=== PATIENT | female | born 2000 | race African-American/Black ===

== ENCOUNTER 2022-07-21 05:32 | Emergency (ER) | payer BC, OTHER ==
--- OUTSIDE RECORDS SUMMARY | 2022-07-21 05:38 | XMS REPORT | Continuity of Care Document ---
:2000 Author Organization [facility] t Address [address] [place] [address] Care Team Providers Name Role Phone Pcp, Patient Does Not Have A Primary Care Physician [phone] Ganesh Pinto Attending Clinician Unavailable SACHIN_CHENG_Blair_Nayely Attending Clinician Unavailable Ganesh Pinto Attending Clinician [phone] Dat Attending Clinician Unavailable [place] Attending Clinician Jennifer Sparks MD Attending Clinician JENNIFER SPARKS Attending Clinician Unavailable YESSENIA KURTZ Attending Clinician Unavailable Yessenia Kurtz MD Attending Clinician Sarah Alvarez Attending Clinician Lux Marquez Attending Clinician Unknown, Attending Attending Clinician Unavailable LUX GUDINO Attending Clinician Unavailable Doctor Unassigned, [place] Attending Clinician Unavailable Ganesh Pinto Admitting Clinician Unavailable Soo Admitting Clinician Unavailable Dat Admitting Clinician Unavailable Payers Payer Name Policy Type Policy Number Effective Date Expiration Date S delta [facility] [id number] 2022 [place] - 00:00:00 [facility] (MEDICAID REPLACEMENT - [place] [id number] 2016 2022 00:00:00 00:00:00 Problems Condition Condition Condition Status Onset Resolution Last Treating Co mments Source Name Details Category Date Date Treatment Clinician Date Anemia Anemia Problem Active [facility] 6-18 Medical 00:00: 00 Right hip Right hip Disease Active [facility] pain pain 9-15 it[facility] of 00:00: [place] 00 Medical Branch Scoliosis Scoliosis Disease Active 2014-07 [facility] 2-08 ity of 00:00: [place] 00 [facility] Branch Allergies, Adverse Reactions, Alerts Allergy Allergy Status Severity Reaction(s) Onset Inactive Treating Comm ents Source Name Type Date Date Clinician No Known DA Active [facility] 2021-07 [facility] 00 [facility] No Known DA Active [facility] 1[facility]25 [facility] 00 [facility] No Known DA Active U [facility] 1-[facility] 00 [facility] No Known DA Active U [facility] 7-04 [facility] 00 [facility] NO KNOWN Drug Active [facility] ALLERGIE Class ity of S [facility] Social History Social Habit Start Date Stop Date Quantity Comments Source Exposure to 2021-11-06 2021-11-16 Not sure [facility] SARS-CoV-2 (event) 00:00:00 09:45:00 Medica l Branch Alcohol intake 2021-11-16 2021-11-16 0 /d [facility] 00:00:00 00:00:00 Medical Branch Sex Assigned At 2000 2000 [facility] 00:00:00 00:00:00 Medical Branch Smoking Status Start Date Stop Date Source Never smoker [facility] Medical Branch Medications Ordered Filled Start Stop Current Ordering Indication Dosage Frequency Signature Comments Components Source Medication Medication Date Date Medication? Clinician (SIG) Name Name methocarbam 2021- No [id number] 750mg Take 1 [facility] oL 4-20 05-01 tablet by ity of (ROBAXIN-75 [place] 04:59 [place] 750 mg 00 :00 (four) Medical tablet times Branch daily for 10 days. ibuprofen 2021- No [id number] 800mg Take 1 [facility] 800 mg 4-20 05-01 tablet by ity of tablet 00:00: 04:59 mouth [place] 00 :00 every 8 Medical (eight) Branch hours for 10 days. methocarbam 2021- No [id number] 750mg Take 1 [facility] oL 4-20 05-01 tablet by ity of (ROBAXIN-75 00:00: 04:59 mouth [place] 750 mg 00 :00 (four) Medical tablet times Branch daily for 10 days. ibuprofen 2021- No [id number] 800mg Take 1 [facility] 800 mg 4-20 05-01 tablet by ity of tablet 00:00: 04:59 mouth [place] 00 :00 every 8 Medical (eight) Branch hours for 10 days. naproxen 2018- Yes [id number] 375mg Take 1 U nivers 375 mg 1-18 tablet by ity of tablet 00:00: mouth 2 [place] 00 (two) Medical times Branch daily with meals. naproxen 2018-0 Yes [id number] 375mg Take 1 U nivers 375 mg 1-18 tablet by ity of tablet 00:00: mouth 2 [place] 00 (two) Medical times Branch daily with meals. naproxen 2017-0 Yes Take by Univer s sodium 7-14 mouth. ity of (ALEVE) 220 10:44: [place] mg capsule 44 Medical Branch naproxen 2017-0 Yes Take by Univer s sodium 7-14 mouth. ity of (ALEVE) 220 10:44: [place] mg capsule 44 Medical Branch amoxicillin 2018-0 Yes 500mg Take 1 Uni vers 500 mg 7-14 capsule by ity of capsule 00:00: mouth 3 [place] 00 (three) Medical times Branch daily. naproxen 2018-0 Yes 550mg Take 1 Univer s sodium 550 7-14 tablet by ity of mg tablet 00:00: mouth 2 [place] 00 (two) Medical times Branch daily with meals. amoxicillin 2017-0 Yes 500mg Take 1 Uni vers 500 mg 7-14 capsule by ity of capsule 00:00: mouth 3 [place] (three) Medical times Branch daily. naproxen 2018-0 Yes 550mg Take 1 Univer s sodium 550 7-14 tablet by ity of mg tablet 00:00: mouth 2 (two) Medical times Branch daily with meals. traMADOL 2016-0 Yes 50mg Take 1 Tab Uni vers (ULTRAM) 50 1-16 by mouth ity of mg tablet 00:00: every 6 [place] [id number] (six) Medical hours as Branch needed for Pain (scale 4-6). Danielito Soto PA-C / Rigo Pedroza MD BRIANNE# [id number] DPS# [id number] x Lic.# [id number] NPI# [id number] traMADOL 2015-0 Yes 50mg Take 1 Tab Uni vers (ULTRAM) 50 1-16 by mouth ity of mg tablet 00:00: every 6 [place] [address] (six) Medical hours as Branch needed for Pain (scale 4-6). Danielito Soto PA-C / Rigo Pedroza MD BRIANNE# [id number] DPS# [id number] x Lic.# [id number] NPI# [id number] azithromyci azithromyci No azithromyc [facility] n 250 mg n 250 mg in 250 mg Me dical tablet tablet tablet Elinest 0.3 Elinest 0.3 No Elinest [facility] mg-30 mcg mg-30 mcg 0.3 mg-30 Medical tablet TAKE tablet TAKE mcg tablet 1 TABLET BY 1 TABLET BY TAKE 1 MOUTH EVERY MOUTH EVERY TABLET BY DAY DAY MOUTH EVERY DAY famotidine famotidine No famotidine [facility] 40 mg 40 mg 40 mg Medical tablet tablet tablet iron iron No iron [facility] methocarbam methocarbam No methocarba [facility] ol 750 mg ol 750 mg mol 750 mg Medical tablet TAKE tablet TAKE tablet 1 TABLET BY 1 TABLET BY TAKE 1 MOUTH FOUR MOUTH FOUR TABLET BY TIMES DAILY TIMES DAILY MOUTH FOUR FOR 10 DAYS FOR 10 DAYS TIMES DAILY FOR 10 DAYS ondansetron ondansetron No ondansetro [facility] HCl 4 mg HCl 4 mg n HCl 4 mg M edical tablet Take tablet Take tablet 2 tablets 2 tablets Take 2 twice a day twice a day tablets by oral by oral twice a route for route for day by 15 days. 15 days. oral route for 15 days. pantoprazol pantoprazol No pantoprazo [facility] e 40 mg e 40 mg le 40 mg Medic al tablet,suzan tablet,suzan tablet,del yed release yed release ayed TAKE 1 TAKE 1 release TABLET BY TABLET BY TAKE 1 MOUTH EVERY MOUTH EVERY TABLET BY NIGHT AT NIGHT AT MOUTH BEDTIME BEDTIME EVERY NIGHT AT BEDTIME + + No + [facility] Medical terbinafine terbinafine No terbinafin [facility] HCl 250 mg HCl 250 mg e HCl 250 Medical tablet Take tablet Take mg tablet 1 tablet 1 tablet Take 1 every day every day tablet by oral by oral every day route. route. by oral route. azithromyci azithromyci No azithromyc [facility] n 250 mg n 250 mg in 250 mg Me dical tablet tablet tablet Elinest 0.3 Elinest 0.3 No Elinest [facility] mg-30 mcg mg-30 mcg 0.3 mg-30 Medical tablet TAKE tablet TAKE mcg tablet 1 TABLET BY 1 TABLET BY TAKE 1 MOUTH EVERY MOUTH EVERY TABLET BY DAY DAY MOUTH EVERY DAY famotidine famotidine No famotidine [facility] 40 mg 40 mg 40 mg Medical tablet tablet tablet hydrocodone hydrocodone No hydrocodon [facility] 5 5 e 5 Medical mg-acetamin mg-acetamin mg-acetami ophen 325 ophen 325 nophen 325 mg tablet mg tablet mg tablet TAKE 1 TAKE 1 TAKE 1 TABLET BY TABLET BY TABLET BY MOUTH EVERY MOUTH EVERY MOUTH 6 HOURS 6 HOURS EVERY 6 NEEDED NEEDED HOURS NEEDED ibuprofen ibuprofen No ibuprofen [facility] 600 mg 600 mg 600 mg Medical tablet TAKE tablet TAKE tablet 1 TABLET BY 1 TABLET BY TAKE 1 MOUTH EVERY MOUTH EVERY TABLET BY 6 HOURS 6 HOURS MOUTH NEEDED NEEDED EVERY 6 HOURS NEEDED iron iron No iron [facility] methocarbam methocarbam No methocarba [facility] ol 750 mg ol 750 mg mol 750 mg Medical tablet TAKE tablet TAKE tablet 1 TABLET BY 1 TABLET BY TAKE 1 MOUTH FOUR MOUTH FOUR TABLET BY TIMES DAILY TIMES DAILY MOUTH FOUR FOR 10 DAYS FOR 10 DAYS TIMES DAILY FOR 10 DAYS ondansetron ondansetron No ondansetro [facility] HCl 4 mg HCl 4 mg n HCl 4 mg M edical tablet Take tablet Take tablet 2 tablets 2 tablets Take 2 twice a day twice a day tablets by oral by oral twice a route for route for day by 15 days. 15 days. oral route for 15 days. pantoprazol pantoprazol No pantoprazo [facility] e 40 mg e 40 mg le 40 mg Medic al tablet,suzan tablet,suzan tablet,del yed release yed release ayed TAKE 1 TAKE 1 release TABLET BY TABLET BY TAKE 1 MOUTH EVERY MOUTH EVERY TABLET BY NIGHT AT NIGHT AT MOUTH BEDTIME BEDTIME EVERY NIGHT AT BEDTIME + + No + [facility] terbinafine terbinafine No terbinafin [facility] HCl 250 mg HCl 250 mg e HCl 250 Medical tablet Take tablet Take mg tablet 1 tablet 1 tablet Take 1 every day every day tablet by oral by oral every day route. route. by oral route. azithromyci azithromyci No azithromyc [facility] n 250 mg n 250 mg in 250 mg Me dical tablet tablet tablet Elinest 0.3 Elinest 0.3 No Elinest [facility] mg-30 mcg mg-30 mcg 0.3 mg-30 Medical tablet TAKE tablet TAKE mcg tablet 1 TABLET BY 1 TABLET BY TAKE 1 MOUTH EVERY MOUTH EVERY TABLET BY DAY DAY MOUTH EVERY DAY famotidine famotidine No famotidine [facility] 40 mg 40 mg 40 mg Medical tablet tablet tablet iron iron No iron [facility] methocarbam methocarbam No methocarba [facility] ol 750 mg ol 750 mg mol 750 mg Medical tablet TAKE tablet TAKE tablet 1 TABLET BY 1 TABLET BY TAKE 1 MOUTH FOUR MOUTH FOUR TABLET BY TIMES DAILY TIMES DAILY MOUTH FOUR FOR 10 DAYS FOR 10 DAYS TIMES DAILY FOR 10 DAYS ondansetron ondansetron No ondansetro [facility] HCl 4 mg HCl 4 mg n HCl 4 mg M edical tablet Take tablet Take tablet 2 tablets 2 tablets Take 2 twice a day twice a day tablets by oral by oral twice a route for route for day by 15 days. 15 days. oral route for 15 days. pantoprazol pantoprazol No pantoprazo [facility] e 40 mg e 40 mg le 40 mg Medic al tablet,suzan tablet,suzan tablet,del yed release yed release ayed TAKE 1 TAKE 1 release TABLET BY TABLET BY TAKE 1 MOUTH EVERY MOUTH EVERY TABLET BY NIGHT AT NIGHT AT MOUTH BEDTIME BEDTIME EVERY NIGHT AT BEDTIME + + No + [facility] terbinafine terbinafine No terbinafin [facility] HCl 250 mg HCl 250 mg e HCl 250 Medical tablet Take tablet Take mg tablet 1 tablet 1 tablet Take 1 every day every day tablet by oral by oral every day route. route. by oral route. azithromyci azithromyci No azithromyc [facility] n 250 mg n 250 mg in 250 mg Me dical tablet tablet tablet Elinest 0.3 Elinest 0.3 No Elinest [facility] mg-30 mcg mg-30 mcg 0.3 mg-30 Medical tablet TAKE tablet TAKE mcg tablet 1 TABLET BY 1 TABLET BY TAKE 1 MOUTH EVERY MOUTH EVERY TABLET BY DAY DAY MOUTH EVERY DAY famotidine famotidine No famotidine [facility] 40 mg 40 mg 40 mg Medical tablet tablet tablet iron iron No iron [facility] methocarbam methocarbam No methocarba [facility] ol 750 mg ol 750 mg mol 750 mg Medical tablet TAKE tablet TAKE tablet 1 TABLET BY 1 TABLET BY TAKE 1 MOUTH FOUR MOUTH FOUR TABLET BY TIMES DAILY TIMES DAILY MOUTH FOUR FOR 10 DAYS FOR 10 DAYS TIMES DAILY FOR 10 DAYS ondansetron ondansetron No ondansetro [facility] HCl 4 mg HCl 4 mg n HCl 4 mg M edical tablet Take tablet Take tablet 2 tablets 2 tablets Take 2 twice a day twice a day tablets by oral by oral twice a route for route for day by 15 days. 15 days. oral route for 15 days. pantoprazol pantoprazol No pantoprazo [facility] e 40 mg e 40 mg le 40 mg Medic al tablet,suzan tablet,suzan tablet,del yed release yed release ayed TAKE 1 TAKE 1 release TABLET BY TABLET BY TAKE 1 MOUTH EVERY MOUTH EVERY TABLET BY NIGHT AT NIGHT AT MOUTH BEDTIME BEDTIME EVERY NIGHT AT BEDTIME + + No + [facility] terbinafine terbinafine No terbinafin [facility] HCl 250 mg HCl 250 mg e HCl 250 Medical tablet Take tablet Take mg tablet 1 tablet 1 tablet Take 1 every day every day tablet by oral by oral every day route. route. by oral route. azithromyci azithromyci No azithromyc [facility] n 250 mg n 250 mg in 250 mg Me dical tablet tablet tablet Elinest 0.3 Elinest 0.3 No Elinest [facility] mg-30 mcg mg-30 mcg 0.3 mg-30 Medical tablet TAKE tablet TAKE mcg tablet 1 TABLET BY 1 TABLET BY TAKE 1 MOUTH EVERY MOUTH EVERY TABLET BY DAY DAY MOUTH EVERY DAY famotidine famotidine No famotidine [facility] 40 mg 40 mg 40 mg Medical tablet tablet tablet iron iron No iron [facility] Medical methocarbam methocarbam No methocarba [facility] ol 750 mg ol 750 mg mol 750 mg Medical tablet TAKE tablet TAKE tablet 1 TABLET BY 1 TABLET BY TAKE 1 MOUTH FOUR MOUTH FOUR TABLET BY TIMES DAILY TIMES DAILY MOUTH FOUR FOR 10 DAYS FOR 10 DAYS TIMES DAILY FOR 10 DAYS ondansetron ondansetron No ondansetro [facility] HCl 4 mg HCl 4 mg n HCl 4 mg M edical tablet Take tablet Take tablet 2 tablets 2 tablets Take 2 twice a day twice a day tablets by oral by oral twice a route for route for day by 15 days. 15 days. oral route for 15 days. pantoprazol pantoprazol No pantoprazo [facility] e 40 mg e 40 mg le 40 mg Medic al tablet,suzan tablet,suzan tablet,del yed release yed release ayed TAKE 1 TAKE 1 release TABLET BY TABLET BY TAKE 1 MOUTH EVERY MOUTH EVERY TABLET BY NIGHT AT NIGHT AT MOUTH BEDTIME BEDTIME EVERY NIGHT AT BEDTIME + + No + [facility] terbinafine terbinafine No terbinafin [facility] HCl 250 mg HCl 250 mg e HCl 250 Medical tablet Take tablet Take mg tablet 1 tablet 1 tablet Take 1 every day every day tablet by oral by oral every day route. route. by oral route. azithromyci azithromyci No azithromyc [facility] n 250 mg n 250 mg in 250 mg Me dical tablet tablet tablet Elinest 0.3 Elinest 0.3 No Elinest [facility] mg-30 mcg mg-30 mcg 0.3 mg-30 Medical tablet TAKE tablet TAKE mcg tablet 1 TABLET BY 1 TABLET BY TAKE 1 MOUTH EVERY MOUTH EVERY TABLET BY DAY DAY MOUTH EVERY DAY famotidine famotidine No famotidine [facility] 40 mg 40 mg 40 mg Medical tablet tablet tablet iron iron No iron [facility] Medical methocarbam methocarbam No methocarba [facility] ol 750 mg ol 750 mg mol 750 mg Medical tablet TAKE tablet TAKE tablet 1 TABLET BY 1 TABLET BY TAKE 1 MOUTH FOUR MOUTH FOUR TABLET BY TIMES DAILY TIMES DAILY MOUTH FOUR FOR 10 DAYS FOR 10 DAYS TIMES DAILY FOR 10 DAYS ondansetron ondansetron No ondansetro [facility] HCl 4 mg HCl 4 mg n HCl 4 mg M edical tablet Take tablet Take tablet 2 tablets 2 tablets Take 2 twice a day twice a day tablets by oral by oral twice a route for route for day by 15 days. 15 days. oral route for 15 days. pantoprazol pantoprazol No pantoprazo [facility] e 40 mg e 40 mg le 40 mg Medic al tablet,suzan tablet,suzan tablet,del yed release yed release ayed TAKE 1 TAKE 1 release TABLET BY TABLET BY TAKE 1 MOUTH EVERY MOUTH EVERY TABLET BY NIGHT AT NIGHT AT MOUTH BEDTIME BEDTIME EVERY NIGHT AT BEDTIME + + No + [facility] Medical terbinafine terbinafine No terbinafin [facility] HCl 250 mg HCl 250 mg e HCl 250 Medical tablet Take tablet Take mg tablet 1 tablet 1 tablet Take 1 every day every day tablet by oral by oral every day route. route. by oral route. azithromyci azithromyci No azithromyc [facility] n 250 mg n 250 mg in 250 mg Me dical tablet tablet tablet Elinest 0.3 Elinest 0.3 No Elinest [facility] mg-30 mcg mg-30 mcg 0.3 mg-30 Medical tablet TAKE tablet TAKE mcg tablet 1 TABLET BY 1 TABLET BY TAKE 1 MOUTH EVERY MOUTH EVERY TABLET BY DAY DAY MOUTH EVERY DAY famotidine famotidine No famotidine [facility] 40 mg 40 mg 40 mg Medical tablet tablet tablet hydrocodone hydrocodone No hydrocodon [facility] 5 5 e 5 Medical mg-acetamin mg-acetamin mg-acetami ophen 325 ophen 325 nophen 325 mg tablet mg tablet mg tablet TAKE 1 TAKE 1 TAKE 1 TABLET BY TABLET BY TABLET BY MOUTH EVERY MOUTH EVERY MOUTH 6 HOURS 6 HOURS EVERY 6 NEEDED NEEDED HOURS NEEDED ibuprofen ibuprofen No ibuprofen [facility] 600 mg 600 mg 600 mg Medical tablet TAKE tablet TAKE tablet 1 TABLET BY 1 TABLET BY TAKE 1 MOUTH EVERY MOUTH EVERY TABLET BY 6 HOURS 6 HOURS MOUTH NEEDED NEEDED EVERY 6 HOURS NEEDED iron iron No iron [facility] Medical methocarbam methocarbam No methocarba [facility] ol 750 mg ol 750 mg mol 750 mg Medical tablet TAKE tablet TAKE tablet 1 TABLET BY 1 TABLET BY TAKE 1 MOUTH FOUR MOUTH FOUR TABLET BY TIMES DAILY TIMES DAILY MOUTH FOUR FOR 10 DAYS FOR 10 DAYS TIMES DAILY FOR 10 DAYS ondansetron ondansetron No ondansetro [facility] HCl 4 mg HCl 4 mg n HCl 4 mg M edical tablet Take tablet Take tablet 2 tablets 2 tablets Take 2 twice a day twice a day tablets by oral by oral twice a route for route for day by 15 days. 15 days. oral route for 15 days. pantoprazol pantoprazol No pantoprazo [facility] e 40 mg e 40 mg le 40 mg Medic al tablet,suzan tablet,suzan tablet,del yed release yed release ayed TAKE 1 TAKE 1 release TABLET BY TABLET BY TAKE 1 MOUTH EVERY MOUTH EVERY TABLET BY NIGHT AT NIGHT AT MOUTH BEDTIME BEDTIME EVERY NIGHT AT BEDTIME + + No + [facility] terbinafine terbinafine No terbinafin [facility] HCl 250 mg HCl 250 mg e HCl 250 Medical tablet Take tablet Take mg tablet 1 tablet 1 tablet Take 1 every day every day tablet by oral by oral every day route. route. by oral route. azithromyci azithromyci No azithromyc [facility] n 250 mg n 250 mg in 250 mg Me dical tablet tablet tablet Elinest 0.3 Elinest 0.3 No Elinest [facility] mg-30 mcg mg-30 mcg 0.3 mg-30 Medical tablet TAKE tablet TAKE mcg tablet 1 TABLET BY 1 TABLET BY TAKE 1 MOUTH EVERY MOUTH EVERY TABLET BY DAY DAY MOUTH EVERY DAY famotidine famotidine No famotidine [facility] 40 mg 40 mg 40 mg Medical tablet tablet tablet iron iron No iron [facility] methocarbam methocarbam No methocarba [facility] ol 750 mg ol 750 mg mol 750 mg Medical tablet TAKE tablet TAKE tablet 1 TABLET BY 1 TABLET BY TAKE 1 MOUTH FOUR MOUTH FOUR TABLET BY TIMES DAILY TIMES DAILY MOUTH FOUR FOR 10 DAYS FOR 10 DAYS TIMES DAILY FOR 10 DAYS ondansetron ondansetron No ondansetro [facility] HCl 4 mg HCl 4 mg n HCl 4 mg M edical tablet Take tablet Take tablet 2 tablets 2 tablets Take 2 twice a day twice a day tablets by oral by oral twice a route for route for day by 15 days. 15 days. oral route for 15 days. pantoprazol pantoprazol No pantoprazo [facility] e 40 mg e 40 mg le 40 mg Medic al tablet,suzan tablet,suzan tablet,del yed release yed release ayed TAKE 1 TAKE 1 release TABLET BY TABLET BY TAKE 1 MOUTH EVERY MOUTH EVERY TABLET BY NIGHT AT NIGHT AT MOUTH BEDTIME BEDTIME EVERY NIGHT AT BEDTIME + + No + [facility] Medical terbinafine terbinafine No terbinafin [facility] HCl 250 mg HCl 250 mg e HCl 250 Medical tablet Take tablet Take mg tablet 1 tablet 1 tablet Take 1 every day every day tablet by oral by oral every day route. route. by oral route. azithromyci azithromyci No azithromyc [facility] n 250 mg n 250 mg in 250 mg Me dical tablet tablet tablet Elinest 0.3 El[facility]est 0.3 No Elinest [facility] mg-30 mcg mg-30 mcg 0.3 mg-30 Medical tablet TAKE tablet TAKE mcg tablet 1 TABLET BY 1 TABLET BY TAKE 1 MOUTH EVERY MOUTH EVERY TABLET BY DAY DAY MOUTH EVERY DAY famotidine famotidine No famotidine [facility] 40 mg 40 mg 40 mg Medical tablet tablet tablet iron iron No iron [facility] methocarbam methocarbam No methocarba [facility] ol 750 mg ol 750 mg mol 750 mg Medical tablet TAKE tablet TAKE tablet 1 TABLET BY 1 TABLET BY TAKE 1 MOUTH FOUR MOUTH FOUR TABLET BY TIMES DAILY TIMES DAILY MOUTH FOUR FOR 10 DAYS FOR 10 DAYS TIMES DAILY FOR 10 DAYS ondansetron ondansetron No ondansetro [facility] HCl 4 mg HCl 4 mg n HCl 4 mg M edical tablet Take tablet Take tablet 2 tablets 2 tablets Take 2 twice a day twice a day tablets by oral by oral twice a route for route for day by 15 days. 15 days. oral route for 15 days. pantoprazol pantoprazol No pantoprazo [facility] e 40 mg e 40 mg le 40 mg Medic al tablet,suzan tablet,suzan tablet,del yed release yed release ayed TAKE 1 TAKE 1 release TABLET BY TABLET BY TAKE 1 MOUTH EVERY MOUTH EVERY TABLET BY NIGHT AT NIGHT AT MOUTH BEDTIME BEDTIME EVERY NIGHT AT BEDTIME + + No + [facility] Medical terbinafine terbinafine No terbinafin [facility] HCl 250 mg HCl 250 mg e HCl 250 Medical tablet Take tablet Take mg tablet 1 tablet 1 tablet Take 1 every day every day tablet by oral by oral every day route. route. by oral route. Immunizations Ordered Immunization Filled Immunization Date Status Commen ts Source Name Name influenza, influenza, 2019-05-05 Completed [facility] Medical injectable, injectable, 12:38:14 quadrivalent, quadrivalent, preservative free preservative free influenza, influenza, 2019-05-05 Completed [facility] injectable, injectable, 12:38:14 quadrivalent, quadrivalent, preservative free preservative free influenza, influenza, 2019-05-05 Completed [facility] injectable, injectable, 12:38:14 quadrivalent, quadrivalent, preservative free preservative free influenza, influenza, 2019-05-05 Completed [facility] injectable, injectable, 12:38:14 quadrivalent, quadrivalent, preservative free preservative free influenza, influenza, 2019-05-05 Completed [facility] injectable, injectable, 12:38:14 quadrivalent, quadrivalent, preservative free preservative free influenza, influenza, 2019-05-05 Completed [facility] injectable, injectable, 12:38:14 quadrivalent, quadrivalent, preservative free preservative free influenza, influenza, 2019-05-05 Completed [facility] injectable, injectable, 12:38:14 quadrivalent, quadrivalent, preservative free preservative free influenza, influenza, 2019-05-05 Completed [facility] injectable, injectable, 12:38:14 quadrivalent, quadrivalent, preservative free preservative free influenza, influenza, 2019-05-05 Completed [facility] injectable, injectable, 12:38:14 quadrivalent, quadrivalent, preservative free preservative free Vital Signs Vital Name Observation Time Observation Value Comments Source BP Diastolic 2022-06-08 00:00:00 74 mm[Hg] [facility] Height 2022-06-08 00:00:00 63 [in_i] [facility] BMI (Body Mass 2022-06-08 00:00:00 31.4 kg/m2 [facility] Index) BP Systolic 2022-06-08 00:00:00 114 mm[Hg] [facility] Body Weight 2022-06-08 00:00:00 177 [lb_av] [facility] BP Diastolic 2022-05-23 00:00:00 80 mm[Hg] [facility] Height 2022-05-23 00:00:00 63 [in_i] [facility] BMI (Body Mass 2022-05-23 00:00:00 31.9 kg/m2 [facility] BP Systolic 2022-05-23 00:00:00 120 mm[Hg] [facility] Body Weight 2022-05-23 00:00:00 180 [lb_av] [facility] BP Diastolic 2022-05-07 00:00:00 78 mm[Hg] [facility] Height 2022-05-07 00:00:00 63 [in_i] [facility] BMI (Body Mass 2022-05-07 00:00:00 35.4 kg/m2 [facility]) BP Systolic 2022-05-07 00:00:00 116 mm[Hg] [facility] Body Weight 2022-05-07 00:00:00 200 [lb_av] [facility] BP Diastolic 2022-04-20 00:00:00 72 mm[Hg] [facility] Height 2022-04-20 00:00:00 63 [in_i] [facility] BP Systolic 2022-04-20 00:00:00 108 mm[Hg] [facility] Body Weight 2022-04-20 00:00:00 196 [lb_av] [facility] BP Diastolic 2022-04-13 00:00:00 79 mm[Hg] [facility] Height 2022-04-13 00:00:00 63 [in_i] [facility] BMI (Body Mass 2022-04-13 00:00:00 33.5 kg/m2 [facility]) BP Systolic 2022-04-13 00:00:00 124 mm[Hg] [facility] Body Weight 2022-04-13 00:00:00 189 [lb_av] [facility] BP Diastolic 2022-03-30 00:00:00 74 mm[Hg] [facility] Height 2022-03-30 00:00:00 63 [in_i] [facility] BMI (Body Mass 2022-03-30 00:00:00 33.1 kg/m2 [facility] Medical Index) BP Systolic 2022-03-30 00:00:00 113 mm[Hg] [facility] Body Weight 2022-03-30 00:00:00 187 [lb_av] [facility] BP Diastolic 2022-03-16 00:00:00 80 mm[Hg] [facility] BP Systolic 2022-03-16 00:00:00 123 mm[Hg] [facility] Body Weight 2022-03-16 00:00:00 183 [lb_av] [facility] edical BP Diastolic 2022-03-02 00:00:00 68 mm[Hg] Sang Eubanks edical Height 2022-03-02 00:00:00 63 [in_i] Sang Eubanks edical BMI (Body Mass 2022-03-02 00:00:00 31.5 kg/m2 [facility] Index) BP Systolic 2022-03-02 00:00:00 107 mm[Hg] Sang Eubanks edical Body Weight 2022-03-02 00:00:00 178 [lb_av] Sang Eubanks edical BP Diastolic 2022-02-08 00:00:00 80 mm[Hg] Sang Eubanks edical Height 2022-02-08 00:00:00 63 [in_i] Sang Eubanks edical BMI (Body Mass 2022-02-08 00:00:00 31.2 kg/m2 [facility] Index) BP Systolic 2022-02-08 00:00:00 122 mm[Hg] Sang Eubanks edical Body Weight 2022-02-08 00:00:00 176 [lb_av] Sang Eubanks edical Systolic blood 2021-11-16 15:12:00 106 mm[facility]Hg[facility] Diastolic blood 2021-11-16 15:12:00 70 mm[Hg] [facility] pressure [facility] Heart rate 2021-11-16 15:12:00 76 /min [facility] Body height 2021-11-16 15:12:00 160 cm [facility] Body weight 2021-11-16 15:12:00 75.206 kg [facility] BMI 2021-11-16 15:12:00 29.37 kg/m2 [facility] Oxygen saturation 2021-11-16 15:12:00 99 /min [facility] in Arterial blood Medical Br anch by Pulse oximetry Procedures Procedure Date / Time Performed Performing Clinician Shey sabillon [id number] 2022-05-09 00:00:00 [facility] ABDOMINAL ULTRASOUND OF 2022-02-08 00:00:00 [facility] UTERUS (GREATER OR EQUAL TO 14 WEEKS 0 DAYS) SINGLE OR FIRST FETUS [id number] 2019-08-16 00:00:00 [facility] [id number] 2019-08-16 00:00:00 [facility] Plan of Care Planned Activity Planned Date Details Comments Source Diagnostic Test 2022-05-07 00:00:00 urinalysis, dipstick [facility] Pending [code = urinalysis, dipstick] Encounters Start End Encounter Admission Attending Care Care Encounter Source Date/Time Date/Time Type Type Clinicians Facility Department ID 2019-08-16 Inpatient JUWAN Pinto DINORA [id number] [facility] 00:08:00 [facility]anesh [facility] 2019-08-15 Inpatient CHET Pinto DINORA [id number] [facility] 13:12:00 Ganesh [facility] 2022-06-08 2022-06-08 [facility] [id number] [facility] [facility] danya Pinto GC_CHENG_ : [address], [place] [address] , Ph. 2022-06-07 2022-06-07 Outpatient ARAINNA_ PRIV PRIV 126 [id number] [facility] 00:00:00 00:00:00 Armani [id number] [facility] 2022-05-23 2022-05-23 Outpatient GCTESSC_ PRIV PRIV 126 [id number] [facility] 00:00:00 00:00:00 Armani [id number] [facility] 2022-05-23 2022-05-23 [facility]anesh [facility] [id number] [facility] 00:00:00 00:00:00 [facility] Medic ROZ Bowden MD: [address], [address], [place] [address] , Ph. 2022-05-22 2022-05-22 Outpatient GC_SWHAOMC_ PRIV PRIV 126 [id number] [facility] 00:00:00 00:00:00 Armani [id number] [facility] keisha 2022-05-19 2022-05-19 Outpatient GC_SWHAOMC_ PRIV PRIV 126 [id number] [facility] 00:00:00 00:00:00 Armani [id number] Medi keisha 2022-05-15 2022-05-15 Outpatient GC_SWHAOMC_ PRIV PRIV 126 [id number] [facility] 00:00:00 00:00:00 Armani [id number] [facility] 2022-05-09 2022-05-11 Inpatient Blair [facility] [id number] [facility] 10:16:00 18:06:00 Ganesh [facility] 2022-05-07 2022-05-07 Outpatient GC_SWHAOMC_ PRIV PRIV 126 [id number] [facility] 00:00:00 00:00:00 FartunheladioNayely [id number] [facility] keisha 2022-05-07 2022-05-07 [facility]h [facility]:00 00:00:00 [facility] - Medic ARIANNA Bowden_ : [address], [address], [place] [address] , Ph. 2022-05-04 2022-05-04 Outpatient GC_SWHAOMC_ PRIV PRIV 126 [id number] [facility] 00:00:00 00:00:00 FartunheladioNayely [id number] Medi keisha 2022-05-03 2022-05-03 Outpatient GC_SWHAOMC_ PRIV PRIV 126 [id number] [facility] 00:00:00 00:00:00 FartunheladioNayely [id number] Medi keisha 2022-04-20 2022-04-20 [facility]h [facility] 00:00:00 00:00:00 [facility] danya Pinto, SACHIN_CHENG_ : [address] [facility], [address], [place] [address] , Ph. 2022-04-13 2022-04-13 [facility]h [facility] 00:00:00 00:00:00 [facility] danya Pinto, ROZ BARBOUR: [address], [place] [address] , Ph. 2022-04-10 2022-04-10 Outpatient GC_SWHAOMC_ PRIV PRIV 126 [id number] [facility] 00:00:00 00:00:00 Armani [id number] [facility] 2022-03-30 2022-03-30 Outpatient GC_SWHAOMC_ PRIV PRIV 126 [id number] [facility] 00:00:00 00:00:00 Armani [id number] [facility] 2022-03-30 2022-03-30 Outpatient Blair, PRIV PRIV [id number] 00:00:00 00:00:00 Ganesh [id number] Chauncey [id number] 2022-03-30 2022-03-30 [facility]h [facility] 00:00:00 00:00:00 [facility] danya Pinto ROZ BARBOUR: [address], [place] [address] , Ph. 2022-03-16 2022-03-16 Outpatient GC_SWHAOMC_ PRIV PRIV 126 [id number] [facility] 00:00:00 00:00:00 Armani [id number] Medi keisha 2022-03-16 2022-03-16 Outpatient Pinto, PRIV PRIV [id number] 00:00:00 00:00:00 Ganesh [id number] Chauncey [id number] 2022-03-16 2022-03-16 [facility]h [facility] [id number] [facility] 00:00:00 00:00:00 [facility] ms Blair SACHIN_CHENG_ : [address], [place] [address] , Ph. 2022-03-14 2022-03-14 Outpatient GC_SWHAOMC_ PRIV PRIV 126 [id number] [facility] 00:00:00 00:00:00 Blair_G [id number] Medi keisha 2022-03-12 2022-03-12 Outpatient GC_SWHAOMC_ PRIV PRIV 126 [id number] [facility] 00:00:00 00:00:00 Blair_G [id number] Medi keisha 2022-03-09 2022-03-09 Outpatient GC_SWHAOMC_ PRIV PRIV 126 [id number] [facility] 00:00:00 00:00:00 Blair_G [id number] Medi keisha 2022-03-02 2022-03-02 Outpatient GC_SWHAOMC_ PRIV PRIV 126 [id number] [facility] 00:00:00 00:00:00 Blair_G [id number] Medi [facility] 2022-03-02 2022-03-02 [facility]00 00:00:[address] [facility] danya Blair SACHIN_CHENG_ : [address], [place] [address] , Ph. 2022-03-02 2022-03-02 Outpatient Blari, PRIV PRIV [id number] 00:00:00 00:00:00 Ganesh [id number] Chauncey [id number] 2022-03-01 2022-03-01 Outpatient GC_SWHAOMC_ PRIV PRIV 126 [id number] [facility] 00:00:00 00:00:00 Blair_Nayely [id number] Medi keisha 2022-02-16 2022-02-16 Outpatient GC_SWHAOMC_ PRIV PRIV 126 [id number] [facility] 00:00:00 00:00:00 Blair_G [id number] Medi keisha 2022-02-16 2022-02-16 [facility]00 00:00:[address] [facility] danya Pinto, SACHIN_CHENG_ : [address], [place] [address] , Ph. 2022-02-15 2022-02-15 Outpatient GC_SWHATBIC PRIV PRIV 126 [id number] [facility] 00:00:00 00:00:00 _Blair [id number] Medic al 2022-02-13 2022-02-13 Outpatient GC_SWHAOMC_ PRIV PRIV 126 [id number] [facility] 00:00:00 00:00:00 Blair_G [id number] Medi keisha 2022-02-12 2022-02-12 Outpatient GC_SWHATBIC PRIV PRIV 126 [id number] [facility] 00:00:00 00:00:00 _Blair [id number] Medic al 2022-02-08 2022-02-08 Outpatient GC_SWHAOMC_ PRIV PRIV 126 [id number] [facility] 05:13:00 05:13:00 Blair_Nayely [id number] Medi keisha 2022-02-08 2022-02-08 [facility]h [facility] 21 [facility] 00:00:00 00:00:00 [facility] danya SACHIN Pinto_CHENG_ : [address] [facility], [address], [place] [address] , Ph. 2022-02-08 2022-02-08 Outpatient Blair, PRIV PRIV [id number] 00:00:00 00:00:00 Ganesh [id number] [place] [id number] 2021-11-16 2021-11-16 Office Da Pérez [facility] [id number] [facility] 10:15:00 10:30:00 Visit Jennifer Sparks [facility] [id number] Katrina [id number] Juancarlos as RACHID?BLEA [id number] [address] OFFICE [facility] 2021-11-16 2021-11-16 Outpatient Osman SPARKS [facility] [id number] [facility] 10:15:00 10:15:00 JENNIFER mulligandayna [facility] 2021-11-16 2021-11-16 Out[facility] [id number] [facility] 10:15:00 10:15:00 JENNIFER zamora [facility] 2021-11-16 2021-11-16 [facility] [id number] [facility] 00:00:00 00:00:00 ([facility] [id number] it y of [place] 4.2.7.2.686 Juancarlos as RACHID?BLEA [phone] Me dical SAL [address] [place] MEDICAL OFFICE [facility] 2021-11-13 2021-11-13 Outpatient R JERARDO [facility] [id number] Univers 18:54:55 23:59:00 YESSENIA dayna [facility] 2021-11-13 2021-11-13 [facility] [id number] Univers 18:54:55 23:59:00 Encounter [facility] [id number] ity of [place] 4.2.7.2.686 Juancarlos as RACHID?BLEA [phone] Me dicdanya MAURICE [address] [facility] OFFICE [facility] 2021-11-13 2021-11-13 Urgent Jerardo Yessenia [facility] 1.2.840.114 [id number] Univers 18:40:00 18:57:49 [facility] 350.1.13.10 ity of [place] 4.2.7.2.686 Juancarlos as RACHID?BLEA [phone] Me dicdanya MAURICE [address] [place] MEDICAL OFFICE [facility] 2021-11-08 2021-11-08 Urgent Lux Gudino [facility] 1.2.840.114 [id number] Univers 20:00:00 20:20:00 Care [facility] [id number] ity of [place] 4.2.7.2.686 Juancarlos as RACHID?BLEA [phone] Me dical KNLILY [address] [place] MEDICAL OFFICE [facility] 2021-11-08 2021-11-08 Outpatient R JOSE DAVID [facility] [id number] Univers 20:00:00 20:17:39 RANSHANE zamora [facility] 2021-11-08 2021-11-08 Letter Doctor JOSELYN [id number] [facility] 00:00:00 00:00:00 (Out) Unassigned, DON [id number] ity of [place] [facility] [id number] Juancarlos as [phone] [address] 2021-06-12 2021-06-12 Hospital [facility] 1.2.840.114 [id number] Univers 16:00:00 23:59:00 Encounter Jennifer RODRÍGUEZ [id number] [facility]y [facility] 4.2.7.2.686 Juancarlos as RACHID?BLEA [phone] [facility] [address] [place] MEDICAL OFFICE [facility] 2021-06-12 2021-06-12 Outpatient R [facility] [id number] Univers 16:00:00 16:29:36 JENNIFER zamora [facility] 2021-06-12 2021-06-12 Office [facility] [id number] Univers 15:52:47 16:29:36 Visit Jennifer Grover [facility] [id number] it y of [place] 4.2.7.2.686 Juancarlos as RACHID?BLEA [id number] [facility] [address] [place] MEDICAL OFFICE [facility] 2021-05-15 2021-05-15 Outpatient R [facility] [id number] Univers 16:00:00 16:00:00 JENNIFER zamora [facility] 2021-05-12 2021-05-12 Office [facility] [id number] Univers 08:47:22 09:14:38 Visit Jennifer Grover [facility] [id number] it y of [place] [id number] Juancarlos as Rachid?Blea [phone] [facility] [address] [place] [facility] 2021-05-12 2021-05-12 Outpatient R [facility] [id number] Univers 08:45:00 08:45:00 JENNIFER zamora [facility] 2021-05-122021-05-12 Letter [facility] [id number] Univers 00:00:00 00:00:00 (Out) Jennifer Grover [facility] [id number] it y of [place] [id number] Juancarlos as Rachid?Blea [phone] [place] maurice [address] [facility] 2021-05-12 2021-05-12 Orders Doctor JOSELYN 1.2.840.114 [id number] Univers 00:00:00 00:00:00 Only Unassigned, DON [id number] ity of [place] [facility] [id number] Juancarlos as [phone] [address] 2021-05-12 2021-05-12 Letter [facility] [id number] [facility] 00:00:00 00:00:00 (Out) Jennifer Rodríguez [id number] it y of [place] [id number] Juancarlos as Rachid?Blea [phone] [place]aurice [address] [place] [address] 2020-07-04 2020-07-04 Outpatient GC_SWHAOMC_ PRIV PRIV [id number] [facility] 03:02:00 03:02:00 Armani [id number] [facility] 2020-07-04 2020-07-04 Outpatient GC_SWHAOMC_ PRIV PRIV 126 [id number] [facility] 03:02:00 03:02:00 Armani [id number] [facility] 2019-08-16 2019-08-18 Inpatient Blair [facility] [id number] [facility] 00:40:00 12:54:[address] [facility] Results Test Description Test Time Test Comments Results Result Comments Source CBC W/AUTO DIFF 2022-05-11 10:43:00 Test Item Value Reference Range Interpretation Comme nts WHITE BLOOD CELL (test code = WBC) 14.8 K/mm3 6.5-12.3 H RED BLOOD CELL (test code = RBC) 3.05 M/mm3 3.51-4.69 L HEMOGLOBIN (test code = HGB) 8.1 g/dL 10.1-13.8 L HEMATOCRIT (test code = HCT) 25.6 % 32.5-41.8 L MEAN CELL VOLUME (test code = MCV) 83.9 fL 84.6-96.6 L MEAN CELL HGB (test code = MCH) 26.6 pg 27.3-33.9 L MEAN CELL HGB CONCETRATION (test code = MCHC) 31.6 gm/dL 32.0-34. 2 L RED CELL DISTRIBUTION WIDTH (test code = RDW) 14.5 % 12.2-16. 3 N PLATELET COUNT (test code = PLT) 233 K/mm3 134-363 N MEAN PLATELET VOLUME (test code = MPV) 12.3 fL 9.2-12.7 N NEUTROPHIL % (test code = NT%) 65.0 % 57.9-77.3 N LYMPHOCYTE % (test code = LY%) 23.6 % 14.5-29.7 N MONOCYTE % (test code = MO%) 9.5 % 3.6-10.2 N EOSINOPHIL % (test code = EO%) 1.1 % 0.0-3.0 N BASOPHIL % (test code = BA%) 0.2 % 0.1-0.9 N NEUTROPHIL # (test code = NT#) 9.6 K/mm3 LYMPHOCYTE # (test code = LY#) 3.5 K/mm3 MONOCYTE # (test code = MO#) 1.4 K/mm3 EOSINOPHIL # (test code = EO#) 0.16 K/mm3 BASOPHIL # (test code = BA#) 0.0 K/mm3 MANUAL DIFF REQUIRED (test code = MDIFF) NO RBC MORPHOLOGY REQUIRED (test code = RBCM) NORMAL NORMAL PLATELET MORPHOLOGY REQUIRED (test code = PLTMR) ABNORMAL SAUL L HGB [id number] 06:20:00 Test Item Value Reference Range Interpretation Comments HEMOGLOBIN (test code = HGB) 9.6 g/dL 10.1-13.8 L HEMATOCRIT (test code = HCT) 30.1 % 32.5-41.8 L AB HIV 1 14:33:00 Test Item Value Reference Range Interpretation Comments AB HIV 1 2 (test NONREACTIVE NONREACTIVE [facility] = [id number]) 4th Gen HIV Ag/Ab Combo Screen AG HEPATITIS B [id number] 14:33:00 Test Item Value Reference Range Interpretation Comments AG HEPATITIS B SURFACE (test code NONREACTIVE NONREACTIVE = HBSAG) AB HEPATITIS C [id number] 14:33:00 Test Item Value Reference Range Interpretation Comments AB HEPATITIS C (test code = NONREACTIVE NONREACTIVE HCVAB) SIGNAL TO CUTOFF (test code = 0.03 <0.80 N CUTOFF) AB [id number] 14:33:00 Test Item Value Reference Range Interpretation Comments AB TREPONEMA (test code = TREPAB) NONREACTIVE NONREACTIVE CBC W/AUTO [id number] 13:05:00 Test Item Value Reference Range Interpretation Comments WHITE BLOOD CELL (test code = WBC) 9.6 K/mm3 6.5-12.3 N RED BLOOD CELL (test code = RBC) 4.45 M/mm3 3.51-4.69 N HEMOGLOBIN (test code = HGB) 11.7 g/dL 10.1-13.8 N HEMATOCRIT (test code = HCT) 36.7 % 32.5-41.8 N MEAN CELL VOLUME (test code = MCV) 82.5 fL 84.6-96.6 L MEAN CELL HGB (test code = MCH) 26.3 pg 27.3-33.9 L MEAN CELL HGB CONCETRATION (test 31.9 gm/dL 32.0-34.2 L code = MCHC) RED CELL DISTRIBUTION WIDTH (test 14.2 % 12.2-16.3 N code = RDW) PLATELET COUNT (test code = PLT) 232 K/mm3 134-363 N MEAN PLATELET VOLUME (test code = 12.2 fL 9.2-12.7 N MPV) NEUTROPHIL % (test code = NT%) 67.4 % 57.9-77.3 N LYMPHOCYTE % (test code = LY%) 20.5 % 14.5-29.7 N MONOCYTE % (test code = MO%) 10.5 % 3.6-10.2 H EOSINOPHIL % (test code = EO%) 1.0 % 0.0-3.0 N BASOPHIL % (test code = BA%) 0.2 % 0.1-0.9 N NEUTROPHIL # (test code = NT#) 6.4 K/mm3 LYMPHOCYTE # (test code = LY#) 2.0 K/mm3 MONOCYTE # (test code = MO#) 1.0 K/mm3 EOSINOPHIL # (test code = EO#) 0.10 K/mm3 BASOPHIL # (test code = BA#) 0.0 K/mm3 RBC MORPHOLOGY REQUIRED (test code NORMAL NORMAL = RBCM) PLATELET MORPHOLOGY REQUIRED (test NORMAL NORMAL code = PLTMR) Urinalysis macro (dipstick) panel - [id number] 14:46:16 Test Item Value Reference Range Interpretation Comments Protein (test code = Protein) Negative Glucose (test code = Glucose) Negative [facility] macro (dipstick) panel - [id number] 14:46:16 Test Item Value Reference Range Interpretation Comments Protein (test code = Protein) Negative Glucose (test code = Glucose) Negative [facility] MedicalUrinalysis macro (dipstick) panel - [id number] 10:25:00 Test Item Value Reference Range Interpretation Comments Protein (test code = Protein) Negative Glucose (test code = Glucose) Negative [facility] MedicalHIV 1+2 Ab+HIV1 p24 Ag [Presence] in Serum or Plasma by [id number] 00:00:00 Test Item Value Reference Range Interpretation Comments HIV Ag/Ab (test code = HIV non-reactive non-reactive Ag/Ab) [facility] MedicalReagin Ab [Presence] in Serum by [id number] 00:00:00 Test Item Value Reference Range Interpretation Comments RPR (test code = RPR) non-reactive non-reactive [facility] MedicalStreptococcus agalactiae [Presence] in Specimen by Organism specific [id number] 00:00:00 Test Item Value Reference Range Interpretation Comments culture, genital (strep B) (test negative negative code = culture, genital (strep B)) [facility] MedicalHIV 1+2 Ab+HIV1 p24 Ag [Presence] in Serum or Plasma by [id number] 00:00:00 Test Item Value Reference Range Interpretation Comments HIV Ag/Ab (test code = HIV non-reactive non-reactive Ag/Ab) [facility] MedicalReagin Ab [Presence] in Serum by [id number] 00:00:00 Test Item Value Reference Range Interpretation Comments RPR (test code = RPR) non-reactive non-reactive [facility] MedicalStreptococcus agalactiae [Presence] in Specimen by Organism specific [id number] 00:00:00 Test Item Value Reference Range Interpretation Comments culture, genital (strep B) (test negative negative code = culture, genital (strep B)) [facility] MedicalUrinalysis macro (dipstick) panel - [id number] 14:06:00 Test Item Value Reference Range Interpretation Comments Protein (test code = Protein) Negative Glucose (test code = Glucose) Normal [facility] MedicalUrinalysis macro (dipstick) panel - [id number] 14:06:00 Test Item Value Reference Range Interpretation Comments Protein (test code = Protein) Negative Glucose (test code = Glucose) Normal [facility] MedicalUrinalysis macro (dipstick) panel - [id number] 15:00:00 Test Item Value Reference Range Interpretation Comments Protein (test code = Protein) Negative Glucose (test code = Glucose) Negative [facility] MedicalUrinalysis macro (dipstick) panel - [id number] 15:00:00 Test Item Value Reference Range Interpretation Comments Protein (test code = Protein) Negative Glucose (test code = Glucose) Negative [facility] MedicalUrinalysis macro (dipstick) panel - [id number] 14:09:00 Test Item Value Reference Range Interpretation Comments Protein (test code = Protein) Negative Glucose (test code = Glucose) Negative [facility] MedicalUrinalysis macro (dipstick) panel - [id number] 14:09:00 Test Item Value Reference Range Interpretation Comments Protein (test code = Protein) Negative Glucose (test code = Glucose) Negative [facility] MedicalUrinalysis macro (dipstick) panel - [id number] 14:09:00 Test Item Value Reference Range Interpretation Comments Protein (test code = Protein) Negative Glucose (test code = Glucose) Negative [facility] MedicalUrinalysis macro (dipstick) panel - [id number] 14:03:00 Test Item Value Reference Range Interpretation Comments Protein (test code = Protein) Negative Glucose (test code = Glucose) Negative [facility] MedicalUrinalysis macro (dipstick) panel - [id number] 14:03:00 Test Item Value Reference Range Interpretation Comments Protein (test code = Protein) Negative Glucose (test code = Glucose) Negative [facility] MedicalUrinalysis macro (dipstick) panel - [id number] 14:03:00 Test Item Value Reference Range Interpretation Comments Protein (test code = Protein) Negative Glucose (test code = Glucose) Negative [facility] MedicalGlucose [Mass/volume] in Serum or Plasma --post 50 g glucose 2022-02-16 00:00:00 Test Item Value Reference Range Interpretation Comments glu.1HR(glucola)preg. (test code = 94 mg/dL <130 glu.1HR(glucola)preg.) [facility] MedicalGlucose [Mass/volume] in Serum or Plasma --post 50 g glucose 2022-02-16 00:00:00 Test Item Value Reference Range Interpretation Comments glu.1HR(glucola)preg. (test code = 94 mg/dL <130 glu.1HR(glucola)preg.) [facility] MedicalGlucose [Mass/volume] in Serum or Plasma --post 50 g glucose 2022-02-16 00:00:00 Test Item Value Reference Range Interpretation Comments glu.1HR(glucola)preg. (test code = 94 mg/dL <130 glu.1HR(glucola)preg.) [facility] panel - Blood by Automated [id number] 00:00:00 Test Item Value Reference Range Interpretation Comments WBC (test code = WBC) 9.6 10 3.7-12.0 RBC (test code = RBC) 3.78 10 3.60-5.50 HGB (test code = HGB) 11.1 g/dL 11.5-15.6 L HCT (test code = HCT) 32.2 % 34.5-46.5 L MCV (test code = MCV) 85.1 um 80.0-102.0 MCH (test code = MCH) 29.4 pg 25.0-34.1 MCHC (test code = MCHC) 34.6 g/dL 29.0-35.0 RDW (test code = RDW) 13.8 % 10.9-16.9 plt (test code = plt) 268 10 136-392 MPV (test code = MPV) 8.9 um 7.4-11.1 gran % (test code = gran %) 70.7 % 36.0-78.0 lymph % (test code = lymph %) 17.6 % 12.0-48.0 mono % (test code = mono %) 10.2 % 0.0-13.0 eos % (test code = eos %) 1 % 0-8 baso % (test code = baso %) 0 % 0-2 gran # (test code = gran #) 6.8 10 1.2-6.8 lymph # (test code = lymph #) 1.7 10 1.2-3.2 mono # (test code = mono #) 1.0 10 0.3-0.8 H eos # (test code = eos #) 0.1 10 0.0-0.2 baso # (test code = baso #) 0.0 10 0.0-0.2 [facility] panel - Blood by Automated [id number] 00:00:00 Test Item Value Reference Range Interpretation Comments WBC (test code = WBC) 9.6 10 3.7-12.0 RBC (test code = RBC) 3.78 10 3.60-5.50 HGB (test code = HGB) 11.1 g/dL 11.5-15.6 L HCT (test code = HCT) 32.2 % 34.5-46.5 L MCV (test code = MCV) 85.1 um 80.0-102.0 MCH (test code = MCH) 29.4 pg 25.0-34.1 MCHC (test code = MCHC) 34.6 g/dL 29.0-35.0 RDW (test code = RDW) 13.8 % 10.9-16.9 plt (test code = plt) 268 10 136-392 MPV (test code = MPV) 8.9 um 7.4-11.1 gran % (test code = gran %) 70.7 % 36.0-78.0 lymph % (test code = lymph %) 17.6 % 12.0-48.0 mono % (test code = mono %) 10.2 % 0.0-13.0 eos % (test code = eos %) 1 % 0-8 baso % (test code = baso %) 0 % 0-2 gran # (test code = gran #) 6.8 10 1.2-6.8 lymph # (test code = lymph #) 1.7 10 1.2-3.2 mono # (test code = mono #) 1.0 10 0.3-0.8 H eos # (test code = eos #) 0.1 10 0.0-0.2 baso # (test code = baso #) 0.0 10 0.0-0.2 [facility] [id number] 00:00:00 Test Item Value Reference Range Interpretation Comments WBC (test code = WBC) 9.6 10 3.7-12.0 RBC (test code = RBC) 3.78 10 3.60-5.50 HGB (test code = HGB) 11.1 g/dL 11.5-15.6 L HCT (test code = HCT) 32.2 % 34.5-46.5 L MCV (test code = MCV) 85.1 um 80.0-102.0 MCH (test code = MCH) 29.4 pg 25.0-34.1 MCHC (test code = MCHC) 34.6 g/dL 29.0-35.0 RDW (test code = RDW) 13.8 % 10.9-16.9 plt (test code = plt) 268 10 136-392 MPV (test code = MPV) 8.9 um 7.4-11.1 gran % (test code = gran %) 70.7 % 36.0-78.0 lymph % (test code = lymph %) 17.6 % 12.0-48.0 mono % (test code = mono %) 10.2 % 0.0-13.0 eos % (test code = eos %) 1 % 0-8 baso % (test code = baso %) 0 % 0-2 gran # (test code = gran #) 6.8 10 1.2-6.8 lymph # (test code = lymph #) 1.7 10 1.2-3.2 mono # (test code = mono #) 1.0 10 0.3-0.8 H eos # (test code = eos #) 0.1 10 0.0-0.2 baso # (test code = baso #) 0.0 10 0.0-0.2 [facility] [Presence] in [id number] 00:00:00 Test Item Value Reference Range Interpretation Comments hep C Ab. (S/co ratio) (test <0.02 <0.80 code = hep C Ab. (S/co ratio)) hep. C Ab. (test code = hep. C non-reactive non-reactive Ab.) [facility] p24 Ag [Presence] in Serum or Plasma by [id number] 00:00:00 Test Item Value Reference Range Interpretation Comments HIV Ag/Ab (test code = HIV non-reactive non-reactive Ag/Ab) [facility] Urine by [id number] 00:00:00 Test Item Value Reference Range Interpretation Comments bacteria, urine (test code = none none-few bacteria, urine) blood, urine (test code = negative negative blood, urine) bilirubin, urine (test code = negative negative bilirubin, urine) cast, granular, ur (test code none seen 0-1 = cast, granular, ur) cast, hyaline, urine (test 0-4 0-4 code = cast, hyaline, urine) cast, RBC, urine (test code = none seen 0-1 cast, RBC, urine) character (test code = clear clear character) color (test code = color) yellow yellow, straw, meghan crystal amt. urine (test code none none = crystal amt. urine) crystals urine (test code = none none crystals urine) culture, urine (test code = see below no growth culture, urine) epithelial cells, ur (test few none-few code = epithelial cells, ur) glucose, urine (test code = negative negative glucose, urine) ketone, urine (test code = negative negative ketone, urine) leukocyte esterase (test code negative negative = leukocyte esterase) nitrites urine (test code = negative negative nitrites urine) pH urine (test code = pH 7.5 5.0-8.0 urine) protein, urine (test code = negative negative protein, urine) RBC, urine (test code = RBC, none seen none seen urine) specific gravity ur (test code 1.012 1.003-1.030 = specific gravity ur) urobilinogen urine (test code 1.0 mg/dL 0.2-1.0 = urobilinogen urine) WBC, urine (test code = WBC, 0-4 0-4 urine) [facility] and [id number] 00:00:00 Test Item Value Reference Range Interpretation Comments WBC (test code = 8.05 x10(3)/uL 4.00-10.10 WBC) RBC (test code = 3.87 x10(6)/uL 3.58-5.19 RBC) HGB (test code = 11.1 g/dL 11.0-15.5 HGB) HCT (test code = 33.5 % 31.5-44.8 HCT) MCV (test code = 86.6 fL 78.0-98.0 MCV) MCH (test code = 28.7 pg 25.2-32.6 MCH) MCHC (test code = 33.1 g/dL 31.0-34.7 MCHC) RDW (test code = 13.2 % 12.0-15.5 RDW) platelet count (test 270 x10(3)/uL 140-425 code = platelet count) lymphs (test code = 19.6 % 13.7-50.9 lymphs) monos (test code = 8.4 % 3.0-11.9 monos) eos (test code = 0.9 % 0.0-5.0 eos) basos (test code = 0.2 % 0.0-1.0 basos) MPV (test code = 11.2 fL 8.6-12.1 MPV) polys (test code = 70.4 % 37.1-78.1 polys) RPR (test code = non-reactive non-reactive RPR) immature 0.5 % 0.0-1.0 granulocytes (test code = immature granulocytes) ABO/Rh blood type O pos (test code = ABO/Rh blood type) antibody screen negative negative (test code = antibody screen) hep. B surf. Ag non-reactive non-reactive (test code = hep. B surf. Ag) rubella,IgG (test 58.3 [IU]/mL See_Comment [Automate d code = rubella,IgG) message] The system which generated this result transmitted reference range : immune >9.9. Th e reference range was not used to interpret this result as normal/abnormal . [facility] [Presence] in [id number] 00:00:00 Test Item Value Reference Range Interpretation Comments hep C Ab. (S/co ratio) (test <0.02 <0.80 code = hep C Ab. (S/co ratio)) hep. C Ab. (test code = hep. C non-reactive non-reactive Ab.) [facility]1 p24 Ag [Presence] in Serum or Plasma by [id number] 00:00:00 Test Item Value Reference Range Interpretation Comments HIV Ag/Ab (test code = HIV non-reactive non-reactive Ag/Ab) [facility] Urine by [id number] 00:00:00 Test Item Value Reference Range Interpretation Comments bacteria, urine (test code = none none-few bacteria, urine) blood, urine (test code = negative negative blood, urine) bilirubin, urine (test code = negative negative bilirubin, urine) cast, granular, ur (test code none seen 0-1 = cast, granular, ur) cast, hyaline, urine (test 0-4 0-4 code = cast, hyaline, urine) cast, RBC, urine (test code = none seen 0-1 cast, RBC, urine) character (test code = clear clear character) color (test code = color) yellow yellow, straw, meghan crystal amt. urine (test code none none = crystal amt. urine) crystals urine (test code = none none crystals urine) culture, urine (test code = see below no growth culture, urine) epithelial cells, ur (test few none-few code = epithelial cells, ur) glucose, urine (test code = negative negative glucose, urine) ketone, urine (test code = negative negative ketone, urine) leukocyte esterase (test code negative negative = leukocyte esterase) nitrites urine (test code = negative negative nitrites urine) pH urine (test code = pH 7.5 5.0-8.0 urine) protein, urine (test code = negative negative protein, urine) RBC, urine (test code = RBC, none seen none seen urine) specific gravity ur (test code 1.012 1.003-1.030 = specific gravity ur) urobilinogen urine (test code 1.0 mg/dL 0.2-1.0 = urobilinogen urine) WBC, urine (test code = WBC, 0-4 0-4 urine) [facility] and [id number] 00:00:00 Test Item Value Reference Range Interpretation Comments WBC (test code = 8.05 x10(3)/uL 4.00-10.10 WBC) RBC (test code = 3.87 x10(6)/uL 3.58-5.19 RBC) HGB (test code = 11.1 g/dL 11.0-15.5 HGB) HCT (test code = 33.5 % 31.5-44.8 HCT) MCV (test code = 86.6 fL 78.0-98.0 MCV) MCH (test code = 28.7 pg 25.2-32.6 MCH) MCHC (test code = 33.1 g/dL 31.0-34.7 MCHC) RDW (test code = 13.2 % 12.0-15.5 RDW) platelet count (test 270 x10(3)/uL 140-425 code = platelet count) lymphs (test code = 19.6 % 13.7-50.9 lymphs) monos (test code = 8.4 % 3.0-11.9 monos) eos (test code = 0.9 % 0.0-5.0 eos) basos (test code = 0.2 % 0.0-1.0 basos) MPV (test code = 11.2 fL 8.6-12.1 MPV) polys (test code = 70.4 % 37.1-78.1 polys) RPR (test code = non-reactive non-reactive RPR) immature 0.5 % 0.0-1.0 granulocytes (test code = immature granulocytes) ABO/Rh blood type O pos (test code = ABO/Rh blood type) antibody screen negative negative (test code = antibody screen) hep. B surf. Ag non-reactive non-reactive (test code = hep. B surf. Ag) rubella,IgG (test 58.3 [IU]/mL See_Comment [Automate d code = rubella,IgG) message] The system which generated this result transmitted reference range : immune >9.9. Th e reference range was not used to interpret this result as normal/abnormal . [facility]lamydia trachomat[facility]+Neisseria gonorrhoeae rRNA [Presence] in Urine by [id number] 00:00:00 Test Item Value Reference Range Interpretation Comments aptima combo 2 urine (CT) (test code = CT neg negative aptima combo 2 urine (CT)) aptima combo 2 urine (GC) (test code = GC neg negative aptima combo 2 urine (GC)) [facility]lamydia trachomatis+Neisseria gonorrhoeae rRNA [Presence] in Urine by [id number] 00:00:00 Test Item Value Reference Range Interpretation Comments aptima combo 2 urine (CT) (test code = CT neg negative aptima combo 2 urine (CT)) aptima combo 2 urine (GC) (test code = GC neg negative aptima combo 2 urine (GC)) [facility] MedicalThyrotropin [Units/volume] in Serum or [id number] 00:00:00 Test Item Value Reference Range Interpretation Comments TSH (test code = TSH) 0.872 uIU/mL 0.178-4.530 [facility] MedicalThyrotropin [Units/volume] in Serum or [id number] 00:00:00 Test Item Value Reference Range Interpretation Comments TSH (test code = TSH) 0.872 uIU/mL 0.178-4.530 [facility] MedicalHGB [id number] 05:24:00 Test Item Value Reference Range Interpretation Comments HEMOGLOBIN (test code = HGB) 9.0 g/dL 10.7-13.9 L HEMATOCRIT (test code = HCT) 28.7 % 32.1-42.1 L AG HEPATITIS B [id number] 03:36:00 Test Item Value Reference Range Interpretation Comments AG HEPATITIS B SURFACE (test code NONREACTIVE NONREACTIVE = HBSAG) IS CONSENT FORM SIGNED FOR HIV TESTING? YAB HEPATITIS C [id number] 03:36:00 Test Item Value Reference Range Interpretation Comments AB HEPATITIS C (test code = NONREACTIVE NONREACTIVE HCVAB) SIGNAL TO CUTOFF (test code = 0.15 <0.80 N CUTOFF) IS CONSENT FORM SIGNED FOR HIV TESTING? YAB [id number] 03:36:00 Test Item Value Reference Range Interpretation Comments AB TREPONEMA (test code = TREPAB) NONREACTIVE NONREACTIVE IS CONSENT FORM SIGNED FOR HIV TESTING? YAB HIV 1 03:36:00 Test Item Value Reference Range Interpretation Comments AB HIV 1 2 (test NONREACTIVE NONREACTIVE [facility] code = [id number]) 4th Gen HIV Ag/Ab Combo Screen IS CONSENT FORM SIGNED FOR HIV TESTING? YAG HEPATITIS B [id number] 02:41:00 Test Item Value Reference Range Interpretation Comments AG HEPATITIS B SURFACE (test code NONREACTIVE NONREACTIVE = HBSAG) IS CONSENT FORM SIGNED FOR HIV TESTING? YAB HEPATITIS C [id number] 02:41:00 Test Item Value Reference Range Interpretation Comments AB HEPATITIS C (test code = HCVAB) NONREACTIVE SIGNAL TO CUTOFF (test code = CUTOFF) <0.80 IS CONSENT FORM SIGNED FOR HIV TESTING? YAB [id number] 02:41:00 Test Item Value Reference Range Interpretation Comments AB TREPONEMA (test code = TREPAB) NONREACTIVE NONREACTIVE IS CONSENT FORM SIGNED FOR HIV TESTING? YAB HIV 1 02:41:00 Test Item Value Reference Range Interpretation Comments AB HIV 1 2 (test code = [id number]) NONREACTIVE IS CONSENT FORM SIGNED FOR HIV TESTING? YCBC W/AUTO [id number] 01:56:00 Test Item Value Reference Range Interpretation Comments WHITE BLOOD CELL (test code = WBC) 10.9 K/mm3 6.6-12.1 N RED BLOOD CELL (test code = RBC) 4.37 M/mm3 3.45-5.01 N HEMOGLOBIN (test code = HGB) 11.4 g/dL 10.7-13.9 N HEMATOCRIT (test code = HCT) 36.5 % 32.1-42.1 N MEAN CELL VOLUME (test code = MCV) 84 fL 84.1-94.8 L MEAN CELL HGB (test code = MCH) 26.1 pg 27-35 L MEAN CELL HGB CONCETRATION (test 31.2 gm/dL 32.2-34.1 L code = MCHC) RED CELL DISTRIBUTION WIDTH (test 15.4 % 12.4-16.5 N code = RDW) PLATELET COUNT (test code = PLT) 225 K/mm3 133-385 N MEAN PLATELET VOLUME (test code = 12.2 fl 9.1-12.7 N MPV) NEUTROPHIL % (test code = NT%) 70.6 % 56.5-79.4 N LYMPHOCYTE % (test code = LY%) 16.0 % 14.3-34.3 N MONOCYTE % (test code = MO%) 12.1 % 5.1-10.4 H EOSINOPHIL % (test code = EO%) 0.5 % 0.1-3.0 N BASOPHIL % (test code = BA%) 0.2 % 0.1-1.0 N NEUTROPHIL # (test code = NT#) 7.7 K/mm3 LYMPHOCYTE # (test code = LY#) 1.7 K/mm3 MONOCYTE # (test code = MO#) 1.3 K/mm3 EOSINOPHIL # (test code = EO#) 0.05 K/mm3 BASOPHIL # (test code = BA#) 0.0 K/mm3 RBC MORPHOLOGY REQUIRED (test code NORMAL NORMAL = RBCM) PLATELET MORPHOLOGY REQUIRED (test NORMAL NORMAL code = PLTMR)
[2022-07-21 06:14] LABS: Urine Blood Negative (Negative); Urine Glucose Negative (Negative); Urine Protein Negative (Negative); Urine Specific Gravity <=1.005 (1.005-1.030)
[2022-07-21 06:30] LABS: Barbiturates NEGATIVE (NEGATIVE); Benzodiazepines NEGATIVE (NEGATIVE); Cocaine NEGATIVE (NEGATIVE); METHAMPHETAM NEGATIVE (NEGATIVE); Methadone NEGATIVE (NEGATIVE); Opiates NEGATIVE (NEGATIVE); Phencyclidine NEGATIVE (NEGATIVE); THC Cannibis NEGATIVE (NEGATIVE)
[2022-07-21] MEDS ORDERED: NA CHLORIDE 0.9% 1,000 ML ONE ×2 (06:31→06:41)
[2022-07-21] MEDS ORDERED: ONDANSETRON 4 MG/2 ML VIAL ONE (06:31)
[2022-07-21] MEDS ORDERED: LORazepam 2 MG/ML VIAL ONE (06:31)
[2022-07-21 06:40] LABS: Absolute Lymphocytes (CBC) 2.2 K/uL (0.7-4.9); Hematocrit 37.6 % (36.0-45.0); Lymphocytes % 31.1 % (15.3-44.8); MCV 76.6 fL (80-100); MPV 8.4 fL (7.6-11.3); RBC Red Blood Cell Count 4.91 M/uL (3.86-4.86)
[2022-07-21] MEDS ORDERED: CEFTRIAXONE 1000 MG/VIAL ONE (06:41)
[2022-07-21] MEDS ORDERED: THIAMINE 200 MG/2 ML INJ ONE (06:41)
[2022-07-21] MEDS ORDERED: MULTIVITAMINS 10 ML VIAL (INJ) IV ONE (06:42)
[2022-07-21 06:44] LABS: Protime INR 1.05
[2022-07-21] MEDS ORDERED: FOLIC ACID 5 MG/ML VIAL ONE (06:45)
[2022-07-21 06:50] LABS: ALT/SGPT 49 U/L (13-56); AST/SGOT 23 U/L (15-37); Albumin 3.8 g/dL (3.4-5.0); Alkaline Phosphatase 93 U/L (45-117); BUN Blood Urea Nitrogen 6 mg/dL (7-18); Bicarbonate 26 mmol/L (21-32); Bilirubin Total 0.2 mg/dL (0.2-1.0); Glomerular Filtration Rate 129 ml/min (=/>90); Glucose Level 115 mg/dL (74-106); Potassium 3.9 mmol/L (3.5-5.1); Protein, Total 7.9 g/dL (6.4-8.2); Sodium Level 143 mmol/L (136-145)
[2022-07-21 06:54] LABS: Bilirubin Direct < 0.1 mg/dL (0-0.2)
[2022-07-21] MEDS ORDERED: NA CHLORIDE 0.9% 50 ML IV ONE (07:04)
--- NOTE | 2022-07-21 07:07 | ER ---
Nurse's Notes [facility] Name: Mary Lucio Age: 22 yrs Sex: Female : 2000 Arrival Date: 07/21/2022 Time: 05:35 Bed 16 Private MD: Diagnosis: UTI/ Urinary tract infection, site not specified;Adjustment disorder with anxiety;Alcohol abuse with intoxication Presentation: 07/21 05:35 Chief complaint: EMS states: Pt was out drinking with the family. Was the first time jb4 since giving . She recently lost her son's father in an accident. Has not been to therapy or on medications. Family thinks tonight it all just came to a head and she is having a panic attack. 05:35 Coronavirus screen: At this time, the client does not indicate any symptoms associated jb4 with coronavirus-19. Ebola Screen: No symptoms or risks identified at this time. Initial Sepsis Screen: Does the patient meet any 2 criteria? RR > 20 per min. HR > 90 bpm. Yes Does the patient have a suspected source of infection? No. Patient's initial sepsis screen is negative. Risk Assessment: Do you want to hurt yourself or someone else? Patient reports desire/thoughts of hurting themselves or someone else. Provider notified. Onset of symptoms was July 21, 2022. Transition of care: patient was not received from another setting of care. 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 - Social history:: Smoking status: Patient denies any tobacco usage or history of. Patient uses alcohol, patient/guardian reports recent binge of alcohol consumption. - Family history:: not pertinent. Screenin:00 [facility] ED Fall Risk Assessment (Adult) Confusion or Disorientation Yes (5 pts) ll1 Intoxicated or Sedated Yes (3 pts) Impaired Gait Yes (1 pt) Altered Elimination Yes (1 pt) Score/Fall Risk Level 3 or more points = High Risk Oriented to surroundings, Maintained a safe environment, Educated pt \T\ family on fall prevention, incl call for assistance when getting out of bed, Provided non-skid footwear, Hourly rounding (assess needs \T\ fall precautionary measures) done, Implemented a Fall Risk Plan of Care, Offered frequent toileting (1:1 observation), Utilized family, sitter, or virtual wood shop teacher as indicated. 12:22 Abuse screen: Denies threats or abuse. Nutritional screening: No deficits noted. ll1 Tuberculosis screening: No symptoms or risk factors identified. Assessment: 05:58 General: Appears distressed, uncomfortable, Behavior is agitated, anxious, crying, jb4 uncooperative. Pain: Unable to use pain scale. Patient is disoriented. Neuro: Level of Consciousness is confused, lethargic, Oriented to none. Cardiovascular: Patient's skin is warm and dry. Respiratory: Airway is patent Respiratory effort is even, labored, Respiratory pattern is symmetrical, hyperventilation. GI: No signs and/or symptoms were reported involving the gastrointestinal system. : No signs and/or symptoms were reported regarding the genitourinary system. EENT: No signs and/or symptoms were reported regarding the EENT system. Derm: Skin is intact, Skin is pink, warm \T\ dry. Musculoskeletal: Circulation, motion, and sensation intact. Range of motion: intact in all extremities. 06:59 Reassessment: Pt is now resting peacefully in bed with eyes closed, respirations are jb4 even and unlabored with no s/s of pain or distress noted. 07:00 Reassessment: No changes from previously documented assessment. report received from ll1 synchronous motor assembler RN. 07:20 Reassessment: No changes from previously documented assessment. Patient and/or family ll1 updated on plan of care and expected duration. Pain level reassessed. Patient is alert, oriented x 3, equal unlabored respirations, skin warm/dry/pink. 08:18 Reassessment: No changes from previously documented assessment. Patient and/or family ll1 updated on plan of care and expected duration. Pain level reassessed. 09:03 Reassessment: No changes from previously documented assessment. cleaned patient and bed ll1 of urine. Brief applied. 10:00 Reassessment: No changes from previously documented assessment. Patient and/or family ll1 updated on plan of care and expected duration. Pain level reassessed. 11:00 Reassessment: No changes from previously documented assessment. Patient and/or family ll1 updated on plan of care and expected duration. Pain level reassessed. 12:00 Reassessment: No changes from previously documented assessment. Patient and/or family ll1 updated on plan of care and expected duration. Pain level reassessed. Patient is alert, oriented x 3, equal unlabored respirations, skin warm/dry/pink. gait steady to restroom. Vital Signs: 05:35 BP 118 / 59; Pulse 94; Resp 32; Temp 98.2(TE); Pulse Ox 100% on R/A; jb4 06:59 BP 100 / 65; Pulse 74; Resp 15; Pulse Ox 97% on R/A; jb4 07:22 BP 96 / 54; Pulse 82; Resp 15; Pulse Ox 98% on R/A; ll1 07:52 BP 98 / 62; Pulse 76; Resp 15; Pulse Ox 99% on R/A; ll1 09:18 BP 107 / 72; Pulse 74; Resp 15; Pulse Ox 98% ; ll1 09:54 BP 98 / 63; Pulse 81; Resp 16; Pulse Ox 97% ; ll1 11:00 BP 101 / 71; Pulse 75; Resp 16; ll1 12:21 BP 107 / 63; Pulse 80; Resp 15; Temp 98.0; Pulse Ox 99% ; ll1 ED Course: 05:35 Patient arrived in ED. 05:48 Clint Lynn, TORIBIO is Primary Nurse. jb4 05:49 Triage completed. jb4 05:50 Arm band placed on right wrist. jb4 05:55 Rancho Miller MD is Attending Physician. ted 06:26 Initial lab(s) drawn, by ak, sent to lab. Inserted saline lock: 20 gauge in right jb4 antecubital area, using aseptic technique. Blood collected. 06:34 Acetaminophen Sent. jb4 06:34 Basic Metabolic Panel Sent. jb4 06:34 CBC with Diff Sent. jb4 06:34 ETOH Level Sent. jb4 06:34 Hepatic Function Sent. jb4 06:34 PT-INR Sent. jb4 06:34 Ptt, Activated Sent. jb4 06:34 Salicylate Sent. jb4 07:00 Client placed on continuous cardiac and pulse oximetry monitoring. NIBP monitoring ll1 applied. compliance monitor on. 12:22 No provider procedures requiring assistance completed. IV discontinued, intact, ll1 bleeding controlled, No redness/swelling at site. Pressure dressing applied. 12:24 Patient has correct armband on for positive identification. Bed in low position. Call ll1 light in reach. Side rails up X2. Adult w/ patient. Seizure precautions initiated. Administered Medications: 06:34 Drug: Ativan (LORazepam) 1 mg Route: IVP; Site: right antecubital; jb4 07:22 Follow up: Response: No adverse reaction; Anxiety decreased; RASS: Drowsy (-1) ll1 06:56 Drug: NS 0.9% 1000 ml Route: IV; Rate: 1 bolus; Site: right antecubital; jb4 07:21 Follow up: Response: No adverse reaction; IV Status: Completed infusion; IV Intake: ll1 400ml 06:56 Drug: Zofran (Ondansetron) 4 mg Route: IVP; Site: right antecubital; jb4 07:21 Follow up: Response: No adverse reaction ll1 07:10 Drug: Banana Bag - (NS 0.9% 1000 ml, foLIC Acid 1 mg, Thiamine 100 mg, Multivitamin 1 ll1 amp) Route: IV; Rate: 500 ml/hr; Site: right antecubital; 09:18 Follow up: Response: No adverse reaction; IV Status: Completed infusion; IV Intake: ll1 1000ml 07:11 Drug: Rocephin (cefTRIAXone) 1 grams Route: IV; Rate: per protocol; Site: right ll1 antecubital; 07:56 Follow up: Response: No adverse reaction; IV Status: Completed infusion; IV Intake: 30cmon0 Medication: 12:24 VIS not applicable for this client. ll1 Intake: 07:21 IV: 400ml; Total: 400ml. ll1 07:56 IV: 50ml; Total: 450ml. ll1 09:18 IV: 1000ml; Total: 1450ml. ll1 Outcome: 07:07 Discharge ordered by . ted 12:23 Discharged to home ambulatory. ll1 12:23 Condition: stable 12:23 Discharge instructions given to patient, family, Instructed on discharge instructions, follow up and referral plans. medication usage, Demonstrated understanding of instructions, follow-up care, medications, Prescriptions given X 2. 12:24 Patient left the ED. ll1 Signatures: Rancho Miller MD MD cha Bryson, James RN RN jb4 Merna Mcclellan RN RN ll1 Nohemi Burgos
--- NOTE | 2022-07-21 07:07 | EDPHYS ---
Physician Documentation [facility] Name: Mary Lucio Age: 22 yrs Sex: Female : 2000 Arrival Date: 07/21/2022 Time: 05:35 Bed 16 Private MD: ED Physician Rancho Miller HPI: 07/21 06:08 This 22 yrs old Black Female presents to ER via EMS with complaints of Anxiety. ted 06:08 The patient presents to the emergency department with anxiety, depression. Onset: The ted symptoms/episode began/occurred 60 day(s) ago. Past psychiatric history: Prior diagnosis: no previous psychiatric diagnosis known. The patient presents with decreased mental status, decreased responsiveness. Onset: The symptoms/episode began/occurred last night. Possible causes: drug use, alcohol, low blood sugar. Associated signs and symptoms: Pertinent positives: confusion, dizziness, lightheadedness. Associated signs and symptoms: Pertinent positives; depression, substance abuse. Current symptoms: In the emergency department the patient's symptoms are unchanged from the initial presentation, despite home interventions. Patient's baseline: Neuro: alert and fully oriented. 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 - Social history:: Smoking status: Patient denies any tobacco usage or history of. Patient uses alcohol, patient/guardian reports recent binge of alcohol consumption. - Family history:: not pertinent. ROS: 06:08 Constitutional: Negative for fever, chills, and weight loss, Eyes: Negative for injury, ted pain, redness, and discharge, ENT: Negative for injury, pain, and discharge, Neck: Negative for injury, pain, and swelling, Cardiovascular: Negative for chest pain, palpitations, and edema, Respiratory: Negative for shortness of breath, cough, wheezing, and pleuritic chest pain, Abdomen/GI: Negative for abdominal pain, nausea, vomiting, diarrhea, and constipation, Back: Negative for injury and pain, : Negative for injury, bleeding, discharge, and swelling, MS/Extremity: Negative for injury and deformity, Skin: Negative for injury, rash, and discoloration, Neuro: Negative for headache, weakness, numbness, tingling, and seizure, Allergy/Immunology: Negative for hives, rash, and allergies, Endocrine: Negative for neck swelling, polydipsia, polyuria, polyphagia, and marked weight changes, Hematologic/Lymphatic: Negative for swollen nodes, abnormal bleeding, and unusual bruising. 06:08 Psych: Positive for anxiety, depression. Exam: 06:08 Constitutional: This is a well developed, well nourished patient who is awake, alert, ted and in no acute distress. Head/Face: Normocephalic, atraumatic. Eyes: Pupils equal round and reactive to light, extra-ocular motions intact. Lids and lashes normal. Conjunctiva and sclera are non-icteric and not injected. Cornea within normal limits. Periorbital areas with no swelling, redness, or edema. ENT: Nares patent. No nasal discharge, no septal abnormalities noted. Tympanic membranes are normal and external auditory canals are clear. Oropharynx with no redness, swelling, or masses, exudates, or evidence of obstruction, uvula midline. Mucous membranes moist. Neck: Trachea midline, no thyromegaly or masses palpated, and no cervical lymphadenopathy. Supple, full range of motion without nuchal rigidity, or vertebral point tenderness. No Meningismus. Chest/axilla: Normal chest wall appearance and motion. Nontender with no deformity. No lesions are appreciated. Cardiovascular: Regular rate and rhythm with a normal S1 and S2. No gallops, murmurs, or rubs. Normal PMI, no JVD. No pulse deficits. Respiratory: Lungs have equal breath sounds bilaterally, clear to auscultation and percussion. No rales, rhonchi or wheezes noted. No increased work of breathing, no retractions or nasal flaring. Abdomen/GI: Soft, non-tender, with normal bowel sounds. No distension or tympany. No guarding or rebound. No evidence of tenderness throughout. Back: No spinal tenderness. No costovertebral tenderness. Full range of motion. Skin: Warm, dry with normal turgor. Normal color with no rashes, no lesions, and no evidence of cellulitis. MS/ Extremity: Pulses equal, no cyanosis. Neurovascular intact. Full, normal range of motion. Neuro: Awake and alert, GCS 15, oriented to person, place, time, and situation. Cranial nerves II-XII grossly intact. Motor strength 5/5 in all extremities. Sensory grossly intact. Cerebellar exam normal. Normal gait. Psych: Awake, alert, with orientation to person, place and time. Behavior, mood, and affect are within normal limits. 07:05 ECG was reviewed by the Attending Physician. [facility] Vital Signs: 05:35 BP 118 / 59; Pulse 94; Resp 32; Temp 98.2(TE); Pulse Ox 100% on R/A; jb4 06:59 BP 100 / 65; Pulse 74; Resp 15; Pulse Ox 97% on R/A; jb4 07:22 BP 96 / 54; Pulse 82; Resp 15; Pulse Ox 98% on R/A; ll1 07:52 BP 98 / 62; Pulse 76; Resp 15; Pulse Ox 99% on R/A; ll1 09:18 BP 107 / 72; Pulse 74; Resp 15; Pulse Ox 98% ; ll1 09:54 BP 98 / 63; Pulse 81; Resp 16; Pulse Ox 97% ; ll1 11:00 BP 101 / 71; Pulse 75; Resp 16; ll1 12:21 BP 107 / 63; Pulse 80; Resp 15; Temp 98.0; Pulse Ox 99% ; ll1 MDM: 05:55 Patient medically screened. [facility] 06:12 Differential diagnosis: acute psychotic break, depression, psychosis secondary to ted non-compliance. Differential Diagnosis: electrolyte abnormality, alcohol intoxication, hypoglycemia, UTI. Data reviewed: vital signs, nurses notes, lab test result(s), EKG. Data interpreted: property assessment monitor: rate is 94 beats/min, rhythm is regular, Pulse oximetry: on room air is 100 %. Test interpretation: by ED physician or midlevel provider: ECG. Counseling: I had a detailed discussion with the patient and/or guardian regarding: the historical points, exam findings, and any diagnostic results supporting the discharge/admit diagnosis, lab results, radiology results, the need for outpatient follow up, for definitive care, a psychiatrist. 07/21 06:00 Order name: Acetaminophen; Complete Time: 07:06 ted 07/21 06:00 Order name: Basic Metabolic Panel; Complete Time: : ted 07/21 06:00 Order name: CBC with Diff; Complete Time: 07:06 [facility] 07/21 06:00 Order name: ETOH Level; Complete Time: 07:06 [facility] 07/21 06:00 Order name: Hepatic Function; Complete Time: 07:06 [facility] 07/21 06:00 Order name: PT-INR; Complete Time: 07:06 [facility] 07/21 06:00 Order name: Ptt, Activated; Complete Time: 07:06 [facility] 07/21 06:00 Order name: Salicylate [facility] 07/21 06:00 Order name: Urine Drug Screen; Complete Time: 07:06 [facility] 07/21 06:14 Order name: Urine Dipstick-Ancillary; Complete Time: 07:06 EDMS 07/21 06:16 Order name: Urine Culture [facility] 07/21 06:16 Order name: Test, Serum [facility] 07/21 06:00 Order name: EKG; Complete Time: 06:01 [facility] 07/21 06:00 Order name: EKG - Nurse/Tech; Complete Time: 06:34 [facility] 07/21 06:00 Order name: IV Saline Lock; Complete Time: 06:34 [facility] 07/21 06:00 Order name: Labs collected and sent; Complete Time: 06:34 [facility] 07/21 06:00 Order name: Urine Dipstick-Ancillary (obtain specimen); Complete Time: 06:34 [facility] 07/21 06:00 Order name: Urine Test (obtain specimen); Complete Time: 06:34 [facility] EC:05 Rate is 77 beats/min. Rhythm is regular. QRS [place] is Normal. [place] interval is normal. QRS ted interval is normal. QT interval is normal. No Q waves. T waves are Normal. No ST changes noted. Clinical impression: NSR w/ Non-specific ST/T Changes and No evidence of ischemia. Interpreted by me. Reviewed by me. Administered Medications: 06:34 Drug: Ativan (LORazepam) 1 mg Route: IVP; Site: right antecubital; jb4 07:22 Follow up: Response: No adverse reaction; Anxiety decreased; RASS: Drowsy (-1) ll1 06:56 Drug: NS 0.9% 1000 ml Route: IV; Rate: 1 bolus; Site: right antecubital; jb4 07:21 Follow up: Response: No adverse reaction; IV Status: Completed infusion; IV Intake: ll1 400ml 06:56 Drug: Zofran (Ondansetron) 4 mg Route: IVP; Site: right antecubital; jb4 07:21 Follow up: Response: No adverse reaction ll1 07:10 Drug: Banana Bag - (NS 0.9% 1000 ml, foLIC Acid 1 mg, Thiamine 100 mg, Multivitamin 1 ll1 amp) Route: IV; Rate: 500 ml/hr; Site: right antecubital; 09:18 Follow up: Response: No adverse reaction; IV Status: Completed infusion; IV Intake: ll1 1000ml 07:11 Drug: Rocephin (cefTRIAXone) 1 grams Route: IV; Rate: per protocol; Site: right ll1 antecubital; 07:56 Follow up: Response: No adverse reaction; IV Status: Completed infusion; IV Intake: [id number] Disposition Summary: 07/21/22 07:07 Discharge Ordered Location: Home ted Problem: new ted Symptoms: have improved ted Condition: Fair ted Diagnosis - UTI/ Urinary tract infection, site not specified ted - Adjustment disorder with anxiety ted - Alcohol abuse with intoxication ted Followup: ted - With: Private Physician - When: 2 - 3 days - Reason: Recheck today's complaints, Continuance of care, Re-evaluation by your physician Discharge Instructions: - Discharge Summary Sheet ted - Adjustment Disorder, Adult ted - Alcohol Intoxication ted - Dysuria ted - Urinary Tract Infection, Adult ted - Alcohol Intoxication, [id number] ted - Urinary Tract Infection, Adult, [id number] ted - Managing Anxiety, Adult ted Forms: - Medication Reconciliation Form [facility] - Thank You Letter ted - Antibiotic Education ted - Prescription Opioid Use [facility] Prescriptions: - Cipro 250 mg Oral Tablet - take 1 tablet by ORAL route every 12 hours; 14 tablet; Refills: 0, Product [facility] Selection Permitted - Zofran 4 mg Oral Tablet - take 1 tablet by ORAL route every 12 hours As needed; 20 tablet; Refills: 0, ted Product Selection Permitted Signatures: Dispatcher [employer] Rancho Shah MD MD cha Bryson, James, RN RN jb4 Merna Mcclellan RN RN ll1
[2022-07-21 13:04] VITALS: BP 107/63; TEMP 98; O2SAT 99
--- NOTE | 2022-07-24 14:35 | EKG ---
Test Date: 2022-07-21 Test Time: 06:34:51 Linux Programmer: RV MEASUREMENT RESULTS: Intervals: Rate: 77 SC: 124 QRSD: 90 QT: 378 QTc: 427 Morris: P: 58 SC: 124 QRS: 53 T: 27 INTERPRETIVE STATEMENTS: Normal sinus rhythm Normal ECG No previous ECG available for comparison Electronically Signed On 07-24-22 14:32:45 MELT HELPER by Christian Webb
== END 2022-07-21 12:24 | disposition home or self-care (01) ==
LOC: ER 05:32
DX: F43.22 Adjustment disorder with anxiety (principal); F10.129 Alcohol abuse with intoxication, unspecified; N39.0 Urinary tract infection, site not specified
CPT/HCPCS: 96365; 93005; 87088; 85025; 87086; 80048; 36415; 80320; 80329 ×2; 84703; 85610; 80076; 85730; 81003; 80307; 96375; 99284; J3411; J7030 ×2; J2405